=== PATIENT | male | born 1965 | race Two or more races ===

== ENCOUNTER 2020-01-20 21:35 | Emergency (ER) | payer OTHER ==
[~2020-01-20] VITALS: Ht 175.3 cm; Wt 81.6 kg
[2020-01-20] MEDS ORDERED: GABAPENTIN400 MG ORAL (21:49)
[2020-01-20] MEDS ORDERED: PAROXETINE CR25 MG PO (21:49)
--- NOTE | 2020-01-20 21:55 | NUR ---
ED Nurse Note: Pt walked into ED from home for c/o head injury that happened around 1530. Pt notes he was cutting trees and a branch hit him in the head. No LOC noted, but reports mild head pain and an episode of dizziness that happened after the branch hit him. Pt is aaox4, breathing is normal and unlabored and has steady gait. No cough, SOB or fever.
[2020-01-20 22:00] VITALS: BP 132/85
--- NOTE | 2020-01-20 22:00 | NUR ---
ED Nurse Note: No open wound to head noted or obvious trauma.
[2020-01-20] MEDS ORDERED: IBUPROFEN600 M1 ORAL (22:05)
--- NOTE | 2020-01-20 22:05 | Emergency Room Report ---
History of Present Illness General Chief Complaint: Head Injury Source: Patient Present Illness HPI This is a 55-year-old male with no past medical history. He presents with chief complaint of head injury. Today he was cutting down some tree branch and 1 of them fell and hit on the top of his head. This occurred around 3:57 PM. He said it was a large branch. He did not pass out but complained of dizziness for about 30 minutes. No nausea no vomiting. No fever chills. There is swelling to the top of his head. Pain is 7 out of 10. Nothing made it better. Palpation made it worse. 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 COVID-19 Screening: Negative COVID-19 COVID-19 Testing Source: [facility] 12/31/19 Patient History Past Medical History: see triage record, old chart reviewed Past Surgical History: none Pertinent Family History: none Social History: Denies: smoking Immunizations: other Reviewed Nursing Documentation: PMH: Agreed; PSxH: Agreed Nursing Documentation-PMH Past Medical History: No Stated History Review of Systems Eye: Denies: eye pain, blurred vision ENT: Denies: ear pain, nose congestion, throat swelling Respiratory: Denies: cough, shortness of breath Cardiovascular: Denies: chest pain, palpitations Gastrointestinal: Denies: abdominal pain, diarrhea, nausea, vomiting Musculoskeletal: Denies: back pain, joint pain Skin: Denies: rash Neurological: Denies: headache, numbness Endocrine: Denies: increased thirst, increased urine Hematologic/Lymphatic: Denies: easy bruising All Other Systems: negative except mentioned in HPI Physical Exam Vital Signs Date Time Temp Pulse Resp B/P (MAP) Pulse Ox O2 Delivery O2 Flow Rate FiO2 01/20/20 21:43 98.2 90 18 132/85 (101) 95 Room Air Vitals unremarkable Sp02 EP Interpretation: reviewed, normal General Appearance: well appearing, no apparent distress, alert Head: normocephalic, other - On the left parietal area near the vertex there is a large hematoma of about 5 cm. Small abrasion to the skin. No active bleeding. No laceration. Eyes: bilateral eye PERRL, bilateral eye EOMI ENT: hearing grossly normal, normal pharynx Neck: full range of motion, supple, no meningismus Respiratory: chest non-tender, lungs clear, normal breath sounds Cardiovascular #1: regular rate, rhythm, no murmur Gastrointestinal: normal bowel sounds, non tender, no mass, no organomegaly, no bruit, non-distended Musculoskeletal: back normal, normal range of motion, gait/station normal Psychiatric: mood/affect normal Medical Decision Making Diagnostic Impression: Primary Impression: Acute head injury Qualified Codes: S09.90XA - Unspecified injury of head, initial encounter Additional Impression: Left parietal scalp hematoma Qualified Codes: S00.03XA - Contusion of scalp, initial encounter ER Course Patient presents with a soft tissue injury and scalp hematoma from trauma. No evidence of any intracranial bleed or skull fracture. CT/MRI/US Diagnostic Results CT/MRI/US Diagnostic Results : Imaging Test Ordered: CT head Impression Read by radiologist scalp hematoma. No intracranial bleed or skull fracture. Last Vital Signs Date Time Temp Pulse Resp B/P (MAP) Pulse Ox O2 Delivery O2 Flow Rate FiO2 01/20/20 21:43 98.2 90 18 132/85 (101) 95 Room Air Status: improved Disposition: HOME, SELF-CARE Condition: Stable Scripts Ibuprofen* (MOTRIN*) 600 Mg Tablet 600 MG ORAL Q6H PRN for For Pain, #30 TAB 0 Refills Prov: Anuel Cuba MD 01/20/20 Additional Instructions: Ice pack to the area. Follow-up with your doctor in 7 days. Return if worse. Anuel Cuba MD Jan 20, 2020 22:05
--- NOTE | 2020-01-20 22:42 | Diagnostic Imaging Report ---
EXAM: CT Head Without Intravenous Contrast CLINICAL HISTORY: TRAUMA TECHNIQUE: Axial computed tomography images of the head/brain without intravenous contrast. CTDI is 53.4 mGy and DLP is 1018.8 mGy-cm. One or more of the following dose reduction techniques were used: automated exposure control, adjustment of the mA and/or kV according to patient size, use of iterative reconstruction technique. COMPARISON: None. FINDINGS: Brain: Encephalomalacia of the left temporal lobe. Prior craniotomy of the left temporal region. No hemorrhage. No significant white matter disease. Ventricles: Unremarkable. No ventriculomegaly. Bones/joints: See above. Soft tissues: Left parietal superficial scalp hematoma. Sinuses: Unremarkable as visualized. No acute sinusitis. Mastoid air cells: Unremarkable as visualized. No mastoid effusion. IMPRESSION: 1. No acute intracranial abdomen on the. 2. Left parietal scalp hematoma. 3. 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
[2020-01-20 22:50] VITALS: BP 128/90
--- NOTE | 2020-01-20 22:50 | NUR ---
ER DISCHARGE NOTE: Patient is cleared to be discharged per ERMD, pt is aox4, on room air, with stable vital signs. pt was given dc and prescription instructions, pt was able to verbalize understanding, pt id band removed. pt is able to ambulate with steady gait. pt took all belongings.
== END 2020-01-20 22:50 | disposition home or self-care (01) ==
LOC: EMR 22:12
DX: S09.90XA Unspecified injury of head, initial encounter (principal); S00.03XA Contusion of scalp, initial encounter; W22.8XXA Striking against or struck by other objects, initial encounter; Y92.9 Unspecified place or not applicable
CPT/HCPCS: 70450; Z7502; 99284